=== PATIENT | male | born 1955 | race African-American/Black ===

== ENCOUNTER 2016-07-21 16:53 | Outpatient (CLI) | payer OTHER ==
--- NOTE | 2016-07-21 17:23 | RAD ---
LEFT THUMB 3 VIEWS: Date: 07/21/16 HISTORY: Left thumb injury. FINDINGS: Osteophytosis is present at each joint with mild joint space narrowing, most pronounced at the first carpometacarpal joint where there is mild lateral subluxation. No acute fracture or dislocation are apparent. IMPRESSION: Osteoarthritic changes of the left thumb. No acute osseous abnormalities are demonstrated. POS: [facility]
== END 2016-07-21 16:54 | disposition home or self-care (01) ==
LOC: NAV RAD 16:53
PROVIDERS: ATTEND Internal Medicine
DX: S60.012A Contusion of left thumb without damage to nail, initial encounter (principal)

== ENCOUNTER 2019-09-12 14:07 | Outpatient (CLI) | payer BC ==
--- NOTE | 2019-09-12 14:46 | CT ---
CT LEFT HAND WITHOUT CONTRAST: HISTORY: Pain. Injury. COMPARISON: None. FINDINGS: Bones: There is sclerosis of the medial tibial plateau articular surface, degenerative in nature. There is a nondisplaced sagittally oriented fracture lateral tibial plateau articular surface with no signific ant step-off. The fracture extends distal to the articular surface approximately 2.5 cm. No signifi cant displacement. Small medial compartment osteophytes and joint space narrowing. Small patellofemoral compartment ost eophyte formation. Although limited, the ACL and PCL appear to be intact. IMPRESSION: Nondisplaced lateral tibial plateau fracture involving the lateral 1/3 articular surface which extend s 2.5 cm distal to the joint space. Minimal, if any, step-off. POS: HOME
== END 2019-09-12 14:08 | disposition home or self-care (01) ==
LOC: NAV CT 14:07
PROVIDERS: ATTEND Internal Medicine
DX: M25.562 Pain in left knee (principal); S82.142D Displaced bicondylar fracture of left tibia, subsequent encounter for closed fracture with routine healing

== ENCOUNTER 2022-06-23 14:07 | Emergency (ER) | payer BC | END 2022-06-23 15:21 | disposition home or self-care (01) | LOC: NAV ERS 14:07 | DX: M65.331 Trigger finger, right middle finger (principal) ==

== ENCOUNTER 2024-05-24 14:07 | Outpatient (CLI) | payer BC ==
[2024-05-24 20:31] LABS: Bilirubin Negative (Negative); Blood, Urine Trace (Negative); Clarity Clear (Clear); Glucose, Urine (Dipstick) Negative (Negative); Ketone, Urine Negative (Negative); Leukocyte Negative (Negative); Nitrite Negative (Negative); Protein, Urine (Dipstick) Negative (Neg-Trace); Urobilinogen 0.2 mg/dL (Less than 2); pH, Urine 6.5 (5.0-9.0)
[2024-05-24 20:35] LABS: RBC/HPF 0-3 HPF (0-3); Squamous Epithelial 0-3 HPF (0-3); WBC/HPF None Seen HPF (0-3)
== END 2024-05-24 14:08 | disposition home or self-care (01) ==
LOC: NAV LAB 14:07
PROVIDERS: ATTEND Urology
DX: Z12.5 Encounter for screening for malignant neoplasm of prostate (principal); C61 Malignant neoplasm of prostate; N52.9 Male erectile dysfunction, unspecified
CPT/HCPCS: 36415; 81001; 84153; 87086